=== PATIENT | male | born 2000 | race African-American/Black ===

== ENCOUNTER 2022-02-17 17:21 | Emergency (ER) | payer OTHER ==
[~2022-02-17] VITALS: Ht 180.3 cm; Wt 89.0 kg
[2022-02-17] MEDS ORDERED: IBUPROFEN 600MG TABLET PO STA (18:55)
[2022-02-17] MEDS ORDERED: DEXAMETHASONE 4MG TABLET PO SCH (21:00)
[2022-02-17 21:45] LABS: HEMATOCRIT. 41.5 % (42.0-52.0); HEMOGLOBIN. 13.6 g/dL (14.0-18.0); MEAN CORPUSCULAR HEMOGLOBIN 26.2 pg (28.0-32.0); MEAN CORPUSCULAR VOLUME 80.1 fL (80.0-94.0); MEAN PLATELET VOLUME 8.4 fl (7.4-10.4); PLATELET 176 x1000/uL (130-400); RED BLOOD CELL COUNT 5.18 mill/uL (4.7-6.1); RED CELL DISTRIBUTION WIDTH 14.8 % (11.6-14.6)
[2022-02-17 21:49] LABS: CHLORIDE 101 mEq/L (98-107)
[2022-02-17 22:23] LABS: PLATELET ESTIMATE NORMAL
[2022-02-17 22:29] VITALS: BP 124/78
== END 2022-02-17 22:30 | disposition home or self-care (01) ==
LOC: ER 17:21
DX: J06.9 Acute upper respiratory infection, unspecified (principal); R05.9 Cough, unspecified; Z20.822 Contact with and (suspected) exposure to COVID-19
CPT/HCPCS: 36415; 71045; 80053; 85025; 87070; 87426; 87430; 87804; 99284; C9803; J8540